=== PATIENT | male | born 1985 | race African-American/Black ===

== ENCOUNTER 2020-12-22 07:48 | Day surgery (SDC) | payer BC ==
[~2020-12-22] VITALS: Ht 190.5 cm; Wt 111.8 kg
[~2020-12-22 07:48] MED LIST: AMLO-187 PO; ATOR20TA58 PO; CLON0.2T PO; HYDR12.58 PO; HYDROmorphone 2 MG/ML VIAL IVP PRN; IV RINGERS,LACTATED 1000ML 1,000 ML IV SCH; PROCHLORPERAZINE 10 MG/2 ML VIAL. IVP PRN; fentaNYL PF VIAL 100 MCG/2 ML VIAL IVP PRN
[2020-12-22] MEDS ORDERED: PROPOFOL 10 MG/ML (20ML) VIAL. IV ONE (08:04)
[2020-12-22] MEDS ORDERED: LIDOCAINE 1% PF 5 ML VIAL. ONE (08:04)
[2020-12-22] MEDS ORDERED: DEXAMETHASONE SOD PHOS 4 MG/ML VIAL ONE (08:04)
[2020-12-22] MEDS ORDERED: fentaNYL PF VIAL 250 MCG/5 ML VIAL ONE (08:04)
[2020-12-22] MEDS ORDERED: NEOSTIGMINE METHYLSULFATE 5 MG/5 ML SYRINGE. ONE (08:04)
[2020-12-22] MEDS ORDERED: GLYCOPYRROLATE 1 MG/5 ML VIAL. ONE (08:04)
[2020-12-22] MEDS ORDERED: ONDANSETRON PF 4 MG/2 ML VIAL. ONE (08:04)
[2020-12-22] MEDS ORDERED: ROCURONIUM 50 MG/5 ML VIAL. ONE (08:05)
[2020-12-22 08:22] VITALS: BP 157/92
[2020-12-22] MEDS ORDERED: BUPIVACAINE-EPI 0.5%-1:200000 MPF 30 ML VIAL. ONE (08:41)
[2020-12-22] MEDS ORDERED: KETOROLAC 30 MG/ML VIAL. ONE (09:42)
--- NOTE | 2020-12-22 10:07 | PDOC4 ---
Operative Note Operative Note Operative Note: Preoperative Diagnosis: Umbilical hernia Postoperative Diagnosis: Same Procedure: Umbilical hernia repair with mesh Surgeon: Alexander Depilatory Painter: Bryanna WARREN Anesthesia: General EBL: 10 mL Specimen: None Drains: None Complications: None Indication: The patient is a 35-year-old male who is referred with an umbilical hernia. He was offered surgical repair. The risks of surgery were discussed which include bleeding, infection, visceral injury, pain, recurrence, anesthetic risk, potential need for additional surgery procedure. He understands and would like to proceed. Description: The patient was taken to the operating room and placed supine on the operating table. General anesthesia was performed. The abdomen was prepped with ChloraPrep and draped with sterile towels, sheets, and an Ioban. A curved infraumbilical incision was made in the skin with a scalpel. Cautery dissection was carried down to the fascia. The umbilical tissue was elevated off the fascia exposing the hernia defect. A preperitoneal plane was developed with cautery and blunt dissection circumferentially. A medium sized Ventralex ST mesh was placed in this plane. The mesh was sutured into position at the 12, 3, 6, 9:00 positions using 0 Prolene in a horizontal mattress fashion. The fascial edges were closed over the mesh with 0 Prolene. The umbilicus was secured back to the fascia with 0 Vicryl. The subcutaneous tissue was closed with 3-0 Vicryl. The skin was approximated with 4-0 Monocryl. Steri-Strips and a sterile dressing were applied. The patient tolerated the procedure well and was sent to the recovery room in stable condition. At the end of the case all counts were correct. ELIO RODRIGUEZ MD Dec 22, 2020 10:07
[2020-12-22] MEDS ORDERED: OXYC1TAB15 PO (10:09)
--- NOTE | 2020-12-22 10:11 | DISCH ---
DISCHARGE INSTRUCTIONS Condition on Discharge Condition on Discharge: Stable Activity After Discharge Activity Instructions for Disc: Other, see below (No lifting over 20 lbs, s trenuous activity X 4 weeks) Diet after Discharge Diet after Discharge: Regular Wound Incision Care Wound/Incision Care: Other, see below (Keep dressing clean and dry X 72 hours, may then remove and shower) Follow-Up Follow up with: Dr Rodriguez in 2 weeks in office, call for appt [phone] ELIO RODRIGUEZ MD Dec 22, 2020 10:11
[2020-12-22] MEDS ORDERED: PROCHLORPERAZINE 10 MG/2 ML VIAL. ONE (10:37)
[2020-12-22] MEDS ORDERED: fentaNYL PF VIAL 100 MCG/2 ML VIAL ONE (10:37)
[2020-12-22] MEDS ORDERED: oxyCODONE/APAP 5/325 1 TAB TABLET PO ONE (11:15)
[2020-12-22] MEDS ORDERED: MORPHINE SULFATE 2 MG/ML INJ. ONE (11:20)
[2020-12-22 11:23] VITALS: BP 138/73
[2020-12-22] MEDS: MORPHINE SULFATE 2 MG/ML INJ. IVP PRN ×2 (11:23→11:45)
== END 2020-12-22 11:55 | disposition home or self-care (01) ==
LOC: SURG 07:48
PROVIDERS: ATTEND Surgery
DX: K42.9 Umbilical hernia without obstruction or gangrene (principal); I10 Essential (primary) hypertension; E78.00 Pure hypercholesterolemia, unspecified; G47.30 Sleep apnea, unspecified; J45.909 Unspecified asthma, uncomplicated; Z79.899 Other long term (current) drug therapy; Z72.89 Other problems related to lifestyle; Z98.890 Other specified postprocedural states
CPT/HCPCS: 49585; A4364; A4930; A6402; C1781; J0780; J1100; J1885; J2270; J2405; J2704; J2710; J3010; J3490; A4223; A4452